=== PATIENT | female | born 1970 | race Caucasian/White ===

== ENCOUNTER 2016-07-13 23:34 | Emergency (ER) | payer OTHER ==
[~2016-07-13] VITALS: Ht 160 cm; Wt 133.9 kg
[~2016-07-13 23:34] MED LIST: ADVAIR 250-501 EACH IH; ADVAIR 250/501 DISK IH; ADVAIR 500/501 DISK IH; ADVAIR HFA120 INHAL1 IH; ALPRAZOLAM1 MG PO; AMOX TR-K CLV1 EAC4 PO; ASPIRIN E.C.81 M1 PO; AUGMENTIN875 MG PO; AZITHROMYCIN500 M1 PO; Aspirin E.C.; CARDIZEM CD,CA300 MG; CARDIZEM120 MG PO; CEFUROXIME500 MG PO; COMBIVENT INH14.7 GM IH; COMBIVENT RESPIM4 GM IH; COUMADIN,JANTO2.5 MG PO; COUMADIN5 MG PO; COUMADIN7.5 MG PO; Ceftin PO; Combivent IH; DELTASONE10 MG PO; DILTIAZEM 24HR240 MG PO; DOXYCYCLINE HY100 M3 PO; DOXYCYCLINE HY100 MG PO; DUONEB 2.5-0.5 M3 ML AEROSOL; DUONEB 2.5-0.5 M3 ML IH; DUONEB3 ML IH; Diflucan PO; FLECAINIDE ACET50 MG PO; FLONASE16 G1 BOTH NARES; KENALOG,ARISTOC15 G1 TP; KLOR-CON 88 MEQ PO; LEVAQUIN500 MG PO; LOPRESSOR25 MG PO; Lopressor PO; MECLIZINE HCL25 M3 PO; MEDROL DOSEPAK4 MG PO; METHIMAZOLE10 MG PO; MICRO-K8 ME2 PO; MOTRIN IB200 MG PO; MULTAQ400 MG PO; POTASSIUM CHLOR8 ME2 PO; PRADAXA75 MG PO; PREDNISOLONE SO10 MG PO; PREDNISONE10 M1 PO; PREDNISONE10 MG PO; PREDNISONE20 MG PO; PROAIR HFA8.5 GM IH; PROTONIX40 MG PO; PROVENTIL,2.5 MG/3 M IH; SINGULAIR10 MG PO; SPIRIVA RESPIMAT4 GM IH; SPIRIVA1 INHALATI IH; Singulair PO; TAMBOCOR50 MG PO; TAMIFLU75 MG PO; Tapazole PO; VENTOLIN HFA18 GM IH; VERAPAMIL ER; VERAPAMIL HCL120 MG PO; VERAPAMIL HCL240 MG PO; VERAPAMIL SR240 MG PO; VIBRAMYCIN100 MG PO; XANAX0.5 MG PO; XANAX1 MG PO; XARELTO20 MG PO; Xanax PO; ZITHROMAX Z-PA250 MG PO; ZITHROMAX250 MG PO; Zithromax PO; predniSONE PO
[2016-07-14] MEDS ORDERED: MEDROL DOSEPAK4 MG PO (01:06)
[2016-07-14 01:27] VITALS: BP 129/86
== END 2016-07-14 01:28 | disposition home or self-care (01) ==
LOC: EME 23:34
DX: J45.901 Unspecified asthma with (acute) exacerbation (principal); E66.01 Morbid (severe) obesity due to excess calories; Z68.43 Body mass index [BMI] 50.0-59.9, adult; Z87.891 Personal history of nicotine dependence
CPT/HCPCS: 94640; 94640 76; 99281; 99283; J7512

== ENCOUNTER 2016-08-18 13:49 | Emergency (ER) | payer OTHER ==
[~2016-08-18] VITALS: Ht 160 cm; Wt 127.2 kg
[2016-08-18 14:40] LABS: BASOPHIL COUNT 0.1 K/uL (0-0.1); EOSINOPHIL (%) 14.1 % (0-5); EOSINOPHIL COUNT 1.2 K/uL (0-0.3); IMMATURE GRANULOCYTE (%) 0.2 % (0.0-0.7); LYMPHOCYTE COUNT 1.8 K/uL (1.0-2.8); MCH 27.6 PG (29.0-34.0); MCHC 31.2 G/DL (30.0-36.0); MCV 88.4 FL (83-99); MEAN PLAT.VOLUME 11.1 uM^3 (9.5-12.4); MONOCYTE (%) 13.7 % (3-12); MONOCYTE COUNT 1.1 K/uL (0-0.8); NEUTROPHIL (%) 48.8 % (45-76); PLATELET COUNT 307 K/uL (156-360); RBC DIS.WIDTH-CV 15.4 % (11.8-14.6); RBC DIS.WIDTH-SD 49.4 % (39-53); RED BLOOD COUNT 4.64 M/uL (3.80-5.20); WHITE BLOOD COUNT 8.3 K/uL (4.1-10.2)
[2016-08-18 14:47] LABS: CHLORIDE 106 mEq/L (99-109); SODIUM 140 mEq/L (136-147)
[2016-08-18 14:49] LABS: GLUCOSE 121 mg/dL (70-99)
[2016-08-18 14:51] LABS: ANION GAP 10 MEQ/L (2-14)
[2016-08-18 14:52] LABS: D-DIMER ELISA 0.25 mg/L FEU (< 0.57)
[2016-08-18 14:53] LABS: GFR ESTIMATE (CALCULATED) > 59 mL/min/
[2016-08-18 14:54] LABS: UREA NITROGEN (BUN) 8 mg/dL (9-23)
[2016-08-18] MEDS ORDERED: PREDNISONE20 MG PO (16:00)
[2016-08-18] MEDS ORDERED: LEVAQUIN750 MG PO (16:00)
[2016-08-18] MEDS ORDERED: PROVENTIL,2.5 MG/3 M IH (16:03)
[2016-08-18 16:16] VITALS: BP 94/83
== END 2016-08-18 16:27 | disposition home or self-care (01) ==
LOC: EME 13:49
PROVIDERS: Physician Assistant
DX: J20.9 Acute bronchitis, unspecified (principal); J45.909 Unspecified asthma, uncomplicated; Z87.891 Personal history of nicotine dependence
CPT/HCPCS: 71020; 80048; 85025; 85379; 93005; 94640; 94640 76; 99281; 99285; J2930; J7040

== ENCOUNTER 2016-10-10 19:30 | Emergency (ER) | payer OTHER ==
[~2016-10-10] VITALS: Ht 162.6 cm; Wt 135.2 kg
[~2016-10-10 19:30] MED LIST changes: +LEVAQUIN750 MG PO
[2016-10-11] MEDS ORDERED: PREDNISONE50 MG PO (00:03)
[2016-10-11] MEDS ORDERED: PROVENTIL,2.5 MG/3 M IH (00:03)
[2016-10-11 00:14] VITALS: BP 164/87
== END 2016-10-11 00:33 | disposition home or self-care (01) ==
LOC: EME 19:30
DX: J44.1 Chronic obstructive pulmonary disease with (acute) exacerbation (principal); J45.901 Unspecified asthma with (acute) exacerbation; Z87.891 Personal history of nicotine dependence; I48.91 Unspecified atrial fibrillation; Z79.01 Long term (current) use of anticoagulants; E66.01 Morbid (severe) obesity due to excess calories; Z68.43 Body mass index [BMI] 50.0-59.9, adult
CPT/HCPCS: 71020; 93005; 94640; 94644; 99281; 99284; J1100; J3475

== ENCOUNTER 2017-02-14 22:56 | Emergency (ER) | payer OTHER ==
[~2017-02-14] VITALS: Ht 160 cm; Wt 137.0 kg
[~2017-02-14 22:56] MED LIST changes: +PREDNISONE50 MG PO
[2017-02-14 23:30] LABS: HEMATOCRIT 41.9 % (36.0-46.0); MCH 27.2 PG (29.0-34.0); MCHC 31.3 G/DL (30.0-36.0); MCV 87.1 FL (83-99); MEAN PLAT.VOLUME 11.3 uM^3 (9.5-12.4); PLATELET COUNT 358 K/uL (156-360); RBC DIS.WIDTH-CV 15.4 % (11.8-14.6); RBC DIS.WIDTH-SD 49.2 % (39-53); RED BLOOD COUNT 4.81 M/uL (3.80-5.20); WHITE BLOOD COUNT 19.5 K/uL (4.1-10.2)
[2017-02-14 23:37] LABS: CHLORIDE 108 mEq/L (99-109); POTASSIUM 3.5 mEq/L (3.7-5.4); SODIUM 141 mEq/L (136-147)
[2017-02-14 23:38] LABS: GLUCOSE 121 mg/dL (70-99)
[2017-02-14 23:40] LABS: ANION GAP 11 MEQ/L (2-14)
[2017-02-14 23:42] LABS: GFR ESTIMATE (CALCULATED) > 59 mL/min/
[2017-02-14 23:43] LABS: UREA NITROGEN (BUN) 14 mg/dL (9-23)
[2017-02-15] MEDS ORDERED: MEDROL DOSEPAK4 MG PO (01:06)
[2017-02-15] MEDS ORDERED: ZITHROMAX Z-PA250 MG PO (01:06)
[2017-02-15 01:41] VITALS: BP 114/90
== END 2017-02-15 01:42 | disposition home or self-care (01) ==
LOC: EME 22:56
DX: J20.9 Acute bronchitis, unspecified (principal); J45.909 Unspecified asthma, uncomplicated; Z87.891 Personal history of nicotine dependence; F41.9 Anxiety disorder, unspecified; Z91.040 Latex allergy status
CPT/HCPCS: 71020; 80048; 85027; 93005; 94640; 94640 76; 99281; 99283; J7512

== ENCOUNTER 2017-03-31 13:48 | Observation (INO) | payer OTHER ==
[~2017-03-31] VITALS: Ht 160 cm; Wt 139.3 kg
[2017-03-31 14:36] LABS: HEMATOCRIT 40.8 % (36.0-46.0); MCH 28.1 PG (29.0-34.0); MCHC 31.9 G/DL (30.0-36.0); MCV 88.1 FL (83-99); MEAN PLAT.VOLUME 10.6 uM^3 (9.5-12.4); PLATELET COUNT 333 K/uL (156-360); RBC DIS.WIDTH-CV 15.2 % (11.8-14.6); RBC DIS.WIDTH-SD 49.4 % (39-53); RED BLOOD COUNT 4.63 M/uL (3.80-5.20); WHITE BLOOD COUNT 13.8 K/uL (4.1-10.2)
[2017-03-31 14:40] LABS: CARBON DIOXIDE (BICARBONATE) 31.3 MEQ/L (20-31)
[2017-03-31 14:46] LABS: CHLORIDE 104 mEq/L (99-109); SODIUM 139 mEq/L (136-147)
[2017-03-31 14:48] LABS: GLUCOSE 257 mg/dL (70-99)
[2017-03-31 14:49] LABS: ANION GAP 8 MEQ/L (2-14)
[2017-03-31 14:51] LABS: GFR ESTIMATE (CALCULATED) > 59 mL/min/
[2017-03-31 14:52] LABS: UREA NITROGEN (BUN) 11 mg/dL (9-23)
[2017-03-31 14:57] LABS: TROP-I INTERPRETATION NEGATIVE; TROPONIN-I < 0.01 ng/mL (0.0-0.30)
[2017-03-31 17:47] VITALS: BP 122/75
[2017-03-31 18:55] VITALS: BP 130/82
[2017-03-31 23:37] VITALS: BP 125/58
[2017-04-01 03:29] VITALS: BP 117/56
[2017-04-01 05:10] LABS: HEMATOCRIT 41.2 % (36.0-46.0); MCH 26.8 PG (29.0-34.0); MCHC 30.6 G/DL (30.0-36.0); MCV 87.7 FL (83-99); MEAN PLAT.VOLUME 10.7 uM^3 (9.5-12.4); PLATELET COUNT 355 K/uL (156-360); RBC DIS.WIDTH-CV 14.8 % (11.8-14.6); RBC DIS.WIDTH-SD 47.7 % (39-53); WHITE BLOOD COUNT 16.2 K/uL (4.1-10.2)
[2017-04-01 05:45] LABS: ANION GAP 8 MEQ/L (2-14); CHLORIDE 102 MEQ/L (99-109); GFR ESTIMATE (CALCULATED) > 59 mL/min/; GLUCOSE 171 mg/dL (70-99); POTASSIUM 4.2 MEQ/L (3.7-5.4); SAMPLE HEMOLYSIS CHECK 0; SAMPLE ICTERIC CHECK 0; SAMPLE LIPEMIA CHECK 0; SODIUM 138 MEQ/L (136-147); UREA NITROGEN (BUN) 11 mg/dL (9-23)
[2017-04-01] MEDS ORDERED: AZITHROMYCIN500 M1 PO (09:15)
[2017-04-01] MEDS ORDERED: DELTASONE20 M1 PO (09:17)
[2017-04-01 09:20] VITALS: BP 120/63
[2017-04-01] MEDS ORDERED: BENZONATATE200 MG PO (11:06)
== END 2017-04-01 12:13 | disposition home or self-care (01) ==
LOC: EME 13:48 → EDOF 16:47 → 5WEST 16:47 → ENRESERV 16:50 → 5WEST 17:37
PROVIDERS: Emergency Medicine; Hospitalist
DX: J45.901 Unspecified asthma with (acute) exacerbation (principal); J96.01 Acute respiratory failure with hypoxia; J20.9 Acute bronchitis, unspecified; I48.0 Paroxysmal atrial fibrillation; R94.31 Abnormal electrocardiogram [ECG] [EKG]; I10 Essential (primary) hypertension; E66.01 Morbid (severe) obesity due to excess calories; Z68.42 Body mass index [BMI] 45.0-49.9, adult; Z79.01 Long term (current) use of anticoagulants; Z91.018 Allergy to other foods; Z91.040 Latex allergy status; Z88.1 Allergy status to other antibiotic agents; Z87.891 Personal history of nicotine dependence
CPT/HCPCS: 71020; 80048; 82803; 83605; 83880; 84484; 85027; 87040; 93005; 94640; 94640 76; 99202; 99281; 99285; G0378; J1100; J2930

== ENCOUNTER 2017-05-12 22:59 | Observation (INO) | payer OTHER ==
[~2017-05-12] VITALS: Ht 160 cm; Wt 140.6 kg
[~2017-05-12 22:59] MED LIST changes: +BENZONATATE200 MG PO; +DELTASONE20 M1 PO
[2017-05-12 23:33] LABS: APPEARANCE SL.HAZY ((CLEAR)); BILIRUBIN NEGATIVE; BLOOD NEGATIVE; COLOR YELLOW ((YELLOW)); GLUCOSE (STRIP) 50; KETONES NEGATIVE; LEUKOCYTES NEGATIVE; NITRITE NEGATIVE; PROTEIN (STRIP) NEGATIVE; SPECIFIC GRAVITY 1.026 (1.000-1.030); UROBILINOGEN 0.2 MG/DL (0.2-1.0)
[2017-05-12 23:58] LABS: RED BLOOD CELLS 0-5 /HPF (0-5); WHITE BLOOD CELLS 0-5 /HPF (0-5)
[2017-05-12 23:59] LABS: BACTERIA RARE /HPF; EPITHELIAL CELLS RARE /HPF; MUCUS NONE SEEN /LPF; UCUL ADDED? NO
[2017-05-13 00:01] LABS: HEMATOCRIT 37.2 % (36.0-46.0); HEMOGLOBIN 11.8 G/DL (11.9-15.5); MCH 27.7 PG (29.0-34.0); MCHC 31.7 G/DL (30.0-36.0); MCV 87.3 FL (83-99); PLATELET COUNT 337 K/uL (156-360); RBC DIS.WIDTH-CV 16.1 % (11.8-14.6); RBC DIS.WIDTH-SD 51.7 % (39-53); RED BLOOD COUNT 4.26 M/uL (3.80-5.20); WHITE BLOOD COUNT 17.3 K/uL (4.1-10.2)
[2017-05-13 00:37] LABS: QUANTITATIVE HCG < 4.0 MIU/ML
[2017-05-13 00:41] LABS: ALBUMIN 3.4 g/dL (3.2-4.8); CHLORIDE 105 mEq/L (99-109); POTASSIUM 3.7 mEq/L (3.7-5.4)
[2017-05-13 00:42] LABS: SODIUM 141 mEq/L (136-147)
[2017-05-13 00:44] LABS: GLUCOSE 137 mg/dL (70-99); TOTAL PROTEIN 6.5 g/dL (6.4-8.3)
[2017-05-13 00:46] LABS: TOTAL BILIRUBIN 0.3 mg/dL (0.0-1.0)
[2017-05-13 00:47] LABS: ALKALINE PHOSPHATASE 79 IU/L (3-129); CREATININE 0.9 mg/dL (0.6-1.3); GFR ESTIMATE (CALCULATED) > 59 mL/min/
[2017-05-13 00:49] LABS: AST (GOT) 12 IU/L (2-34); UREA NITROGEN (BUN) 15 mg/dL (9-23)
[2017-05-13 00:50] LABS: ALT (GPT) 14 IU/L (3-49)
[2017-05-13 04:15] VITALS: BP 129/68
[2017-05-13 09:08] LABS: HEMATOCRIT 37.8 % (36.0-46.0); HEMOGLOBIN 11.6 G/DL (11.9-15.5); MCH 27.6 PG (29.0-34.0); MCHC 30.7 G/DL (30.0-36.0); PLATELET COUNT 321 K/uL (156-360); RBC DIS.WIDTH-CV 16.2 % (11.8-14.6); WHITE BLOOD COUNT 13.7 K/uL (4.1-10.2)
[2017-05-13 11:45] VITALS: BP 126/62
[2017-05-13 15:34] VITALS: BP 113/57
[2017-05-13 20:14] VITALS: BP 115/60
[2017-05-13 23:10] VITALS: BP 121/61
[2017-05-14 04:24] VITALS: BP 131/76
[2017-05-14 05:44] LABS: HEMATOCRIT 36.1 % (36.0-46.0); MCH 27.2 PG (29.0-34.0); MCHC 30.5 G/DL (30.0-36.0); MCV 89.4 FL (83-99); PLATELET COUNT 325 K/uL (156-360); RBC DIS.WIDTH-CV 15.9 % (11.8-14.6); RBC DIS.WIDTH-SD 52.5 % (39-53); RED BLOOD COUNT 4.04 M/uL (3.80-5.20)
[2017-05-14 06:19] LABS: CHLORIDE 99 MEQ/L (99-109); CREATININE 0.8 MG/DL (0.6-1.3); GFR ESTIMATE (CALCULATED) > 59 mL/min/; GLUCOSE 150 mg/dL (70-99); POTASSIUM 3.7 MEQ/L (3.7-5.4); SODIUM 139 MEQ/L (136-147); UREA NITROGEN (BUN) 16 mg/dL (9-23)
[2017-05-14 07:08] VITALS: BP 112/53
[2017-05-14] MEDS ORDERED: AUGMENTIN875 MG PO (10:30)
[2017-05-14] MEDS ORDERED: AZITHROMYCIN500 M1 PO (10:31)
[2017-05-14] MEDS ORDERED: PREDNISONE10 MG PO (10:32)
== END 2017-05-14 13:10 | disposition home or self-care (01) ==
LOC: EME 22:59 → EDOF 05-13 02:50 → 5WEST 05-13 02:50 → ENRESERV 05-13 02:51 → 5WEST 05-13 04:13
PROVIDERS: Hospitalist
DX: J45.51 Severe persistent asthma with (acute) exacerbation (principal); J18.9 Pneumonia, unspecified organism; I48.0 Paroxysmal atrial fibrillation; I48.2 Chronic atrial fibrillation; I48.1 Persistent atrial fibrillation; D72.829 Elevated white blood cell count, unspecified; R09.02 Hypoxemia; R10.31 Right lower quadrant pain; E66.01 Morbid (severe) obesity due to excess calories; Z68.43 Body mass index [BMI] 50.0-59.9, adult; Z79.01 Long term (current) use of anticoagulants; F41.9 Anxiety disorder, unspecified; Z88.1 Allergy status to other antibiotic agents; Z91.018 Allergy to other foods; Z91.040 Latex allergy status
CPT/HCPCS: 71020; 74177; 80048; 80053; 81003; 84702; 85027; 87040; 94640; 94640 76; 94799; 99202; 99281; 99285; G0378; J0456; J0696; J2270; J2405; J7030; J7512

== ENCOUNTER 2017-06-15 17:47 | Emergency (ER) | payer OTHER ==
[~2017-06-15] VITALS: Ht 160 cm; Wt 138.5 kg
[2017-06-15 18:37] LABS: HEMOGLOBIN 12.8 G/DL (11.9-15.5); MCH 27.9 PG (29.0-34.0); MCV 87.3 FL (83-99); PLATELET COUNT 342 K/uL (156-360); RBC DIS.WIDTH-CV 15.9 % (11.8-14.6); RBC DIS.WIDTH-SD 50.7 % (39-53); RED BLOOD COUNT 4.58 M/uL (3.80-5.20); WHITE BLOOD COUNT 13.8 K/uL (4.1-10.2)
[2017-06-15 18:47] LABS: CHLORIDE 106 mEq/L (99-109); POTASSIUM 4.4 mEq/L (3.7-5.4)
[2017-06-15 18:48] LABS: SODIUM 139 mEq/L (136-147)
[2017-06-15 18:49] LABS: GLUCOSE 228 mg/dL (70-99)
[2017-06-15 18:53] LABS: CREATININE 0.9 mg/dL (0.6-1.3); GFR ESTIMATE (CALCULATED) > 59 mL/min/
[2017-06-15 18:54] LABS: UREA NITROGEN (BUN) 11 mg/dL (9-23)
[2017-06-15 18:59] LABS: TROP-I INTERPRETATION NEGATIVE; TROPONIN-I 0.03 ng/mL (0.0-0.30)
[2017-06-15 21:58] LABS: APPEARANCE CLOUDY ((CLEAR)); BILIRUBIN NEGATIVE; BLOOD NEGATIVE; COLOR YELLOW ((YELLOW)); GLUCOSE (STRIP) 150; KETONES NEGATIVE; LEUKOCYTES NEGATIVE; NITRITE NEGATIVE; PROTEIN (STRIP) NEGATIVE; SPECIFIC GRAVITY 1.016 (1.000-1.030); UROBILINOGEN 0.2 MG/DL (0.2-1.0)
[2017-06-15 22:25] LABS: AMORPHOUS PHOSPHATE CRYSTALS 2+; BACTERIA RARE /HPF; EPITHELIAL CELLS RARE /HPF; MUCUS NONE SEEN /LPF; RED BLOOD CELLS NONE SEEN /HPF (0-5); UCUL ADDED? NO; WHITE BLOOD CELLS NONE SEEN /HPF (0-5)
[2017-06-15 22:32] VITALS: BP 114/60
== END 2017-06-15 22:46 | disposition home or self-care (01) ==
LOC: EME 17:47
PROVIDERS: Physician Assistant
DX: R00.2 Palpitations (principal); I48.91 Unspecified atrial fibrillation; F41.9 Anxiety disorder, unspecified; Z91.040 Latex allergy status; Z87.891 Personal history of nicotine dependence
CPT/HCPCS: 71046; 80048; 81003; 84484; 85027; 93005; 99281; 99285; J7030

== ENCOUNTER 2017-08-11 11:15 | Emergency (ER) | payer OTHER ==
[~2017-08-11] VITALS: Ht 160 cm; Wt 139.2 kg
[2017-08-11 11:39] LABS: HEMATOCRIT 39.8 % (36.0-46.0); HEMOGLOBIN 12.5 G/DL (11.9-15.5); MCH 26.8 PG (29.0-34.0); MCHC 31.4 G/DL (30.0-36.0); MCV 85.4 FL (83-99); PLATELET COUNT 326 K/uL (156-360); RBC DIS.WIDTH-CV 16.1 % (11.8-14.6); RBC DIS.WIDTH-SD 49.8 % (39-53); RED BLOOD COUNT 4.66 M/uL (3.80-5.20); WHITE BLOOD COUNT 9.8 K/uL (4.1-10.2)
[2017-08-11 11:48] LABS: CHLORIDE 107 mEq/L (99-109); POTASSIUM 3.9 mEq/L (3.7-5.4); SODIUM 142 mEq/L (136-147)
[2017-08-11 11:50] LABS: GLUCOSE 146 mg/dL (70-99)
[2017-08-11 11:54] LABS: CREATININE 0.7 mg/dL (0.6-1.3); GFR ESTIMATE (CALCULATED) > 59 mL/min/
[2017-08-11 11:55] LABS: UREA NITROGEN (BUN) 7 mg/dL (9-23)
[2017-08-11 12:22] LABS: QUANTITATIVE HCG < 4.0 MIU/ML
[2017-08-11] MEDS ORDERED: VENTOLIN HFA18 GM IH (14:42)
[2017-08-11] MEDS ORDERED: PREDNISONE20 MG PO (14:42)
[2017-08-11 14:58] VITALS: BP 111/67
== END 2017-08-11 15:34 | disposition home or self-care (01) ==
LOC: EME 11:15
DX: J45.901 Unspecified asthma with (acute) exacerbation (principal); R60.0 Localized edema; E66.01 Morbid (severe) obesity due to excess calories; Z68.43 Body mass index [BMI] 50.0-59.9, adult; Z79.01 Long term (current) use of anticoagulants; Z87.891 Personal history of nicotine dependence
CPT/HCPCS: 71046; 80048; 84702; 85027; 94640; 99281; 99285; J2930; J3475

== ENCOUNTER 2017-10-11 15:59 | Inpatient (IN) | payer OTHER ==
[~2017-10-11] VITALS: Ht 160 cm; Wt 141.9 kg
[2017-10-11 17:09] LABS: HEMATOCRIT 36.9 % (36.0-46.0); HEMOGLOBIN 11.7 G/DL (11.9-15.5); MCHC 31.7 G/DL (30.0-36.0); PLATELET COUNT 307 K/uL (156-360); RBC DIS.WIDTH-CV 16.9 % (11.8-14.6); RBC DIS.WIDTH-SD 52.4 % (39-53); RED BLOOD COUNT 4.34 M/uL (3.80-5.20); WHITE BLOOD COUNT 11.7 K/uL (4.1-10.2)
[2017-10-11 17:19] LABS: CHLORIDE 108 mEq/L (99-109); POTASSIUM 3.8 mEq/L (3.7-5.4); SODIUM 141 mEq/L (136-147)
[2017-10-11 17:20] LABS: GLUCOSE 127 mg/dL (70-99)
[2017-10-11 17:24] LABS: CREATININE 0.7 mg/dL (0.6-1.3); GFR ESTIMATE (CALCULATED) > 59 mL/min/
[2017-10-11 17:25] LABS: UREA NITROGEN (BUN) 10 mg/dL (9-23)
[2017-10-11 18:05] LABS: D-DIMER ELISA < 150.00 ng/mLDDU (<230)
[2017-10-11] MEDS ORDERED: FLUCONAZOLE150 MG PO (19:14)
[2017-10-11] MEDS ORDERED: AZITHROMYCIN500 MG PO (19:14)
[2017-10-11] MEDS ORDERED: DELTASONE20 M1 PO (19:14)
[2017-10-11 22:43] VITALS: BP 106/58
[2017-10-12 07:24] VITALS: BP 114/56
[2017-10-12 12:24] VITALS: BP 143/78
[2017-10-12 20:00] VITALS: BP 123/58
[2017-10-12 23:50] VITALS: BP 115/55
[2017-10-13 04:05] VITALS: BP 125/55
[2017-10-13 04:31] LABS: BASOPHIL (%) 0.1 % (0-1); EOSINOPHIL (%) 0 % (0-5); HEMATOCRIT 36.8 % (36.0-46.0); HEMOGLOBIN 11.4 G/DL (11.9-15.5); IMMATURE GRANULOCYTE (%) 1.1 % (0.0-0.7); LYMPHOCYTE (%) 4.2 % (15-42); LYMPHOCYTE COUNT 0.6 K/uL (1.0-2.8); MCH 26.3 PG (29.0-34.0); MONOCYTE (%) 4.4 % (3-12); MONOCYTE COUNT 0.6 K/uL (0-0.8); NEUTROPHIL (%) 90.2 % (45-76); NEUTROPHIL COUNT 12.8 K/uL (1.8-6.4); PLATELET COUNT 300 K/uL (156-360); RBC DIS.WIDTH-CV 16.8 % (11.8-14.6); RBC DIS.WIDTH-SD 52.1 % (39-53); RED BLOOD COUNT 4.33 M/uL (3.80-5.20); WHITE BLOOD COUNT 14.2 K/uL (4.1-10.2)
[2017-10-13 09:00] VITALS: BP 128/72
[2017-10-13 11:46] VITALS: BP 116/57
[2017-10-13 16:58] VITALS: BP 130/72
[2017-10-13 20:09] VITALS: BP 125/67
[2017-10-14 00:29] VITALS: BP 127/72
[2017-10-14 07:10] VITALS: BP 131/58
[2017-10-14 11:49] VITALS: BP 106/66
[2017-10-14 15:41] VITALS: BP 147/63
[2017-10-14 18:56] VITALS: BP 136/80
[2017-10-15 00:09] VITALS: BP 133/65
[2017-10-15 08:30] VITALS: BP 130/62
[2017-10-15 11:25] VITALS: BP 130/71
[2017-10-15] MEDS ORDERED: DOXYCYCLINE HY100 M3 PO (12:52)
[2017-10-15] MEDS ORDERED: PREDNISONE10 MG PO (12:53)
== END 2017-10-15 13:53 | disposition home or self-care (01) | DRG 202 ==
LOC: EME 15:59 → EDOF 20:12 → ENRESERV 20:13 → 4SOUTH 21:53 → CANRESERV 10-13 10:49 → ENRESERV 10-13 10:49 → 4SOUTH 10-15 13:53
PROVIDERS: Internal Medicine Pulmonary Disease
DX: J45.51 Severe persistent asthma with (acute) exacerbation (principal); E66.01 Morbid (severe) obesity due to excess calories; I48.0 Paroxysmal atrial fibrillation; R09.02 Hypoxemia; F41.9 Anxiety disorder, unspecified; E78.5 Hyperlipidemia, unspecified; I25.10 Atherosclerotic heart disease of native coronary artery without angina pectoris; Z87.891 Personal history of nicotine dependence; Z88.8 Allergy status to other drugs, medicaments and biological substances; Z91.018 Allergy to other foods; Z68.43 Body mass index [BMI] 50.0-59.9, adult; Z79.899 Other long term (current) drug therapy; Z79.01 Long term (current) use of anticoagulants; Z91.040 Latex allergy status
CPT/HCPCS: 71046; 71260; 80048; 82785 90; 85025; 85027; 85379; 93005; 94640; 94640 76; 94644; 94667; 94668; 94760; 94799; 99202; 99281; 99285; G0378; J2930; J3475

== ENCOUNTER 2017-12-16 08:43 | Emergency (ER) | payer OTHER ==
[~2017-12-16] VITALS: Ht 160 cm; Wt 136.6 kg
[~2017-12-16 08:43] MED LIST changes: +AZITHROMYCIN500 MG PO; +FLUCONAZOLE150 MG PO
[2017-12-16 09:28] LABS: INTER. NORMALIZED RATIO 1.3
[2017-12-16 09:31] LABS: PTT 34.7 SEC (25-37)
[2017-12-16 09:32] LABS: BASOPHIL (%) 0.8 % (0-1); BASOPHIL COUNT 0.1 K/uL (0-0.1); EOSINOPHIL (%) 6.5 % (0-5); EOSINOPHIL COUNT 0.6 K/uL (0-0.3); HEMATOCRIT 34.6 % (36.0-46.0); IMMATURE GRANULOCYTE (%) 0.5 % (0.0-0.7); LYMPHOCYTE (%) 20.6 % (15-42); LYMPHOCYTE COUNT 1.8 K/uL (1.0-2.8); MCH 26.2 PG (29.0-34.0); MCHC 31.2 G/DL (30.0-36.0); MCV 83.8 FL (83-99); MONOCYTE (%) 14.3 % (3-12); MONOCYTE COUNT 1.2 K/uL (0-0.8); NEUTROPHIL (%) 57.3 % (45-76); PLATELET COUNT 311 K/uL (156-360); RBC DIS.WIDTH-CV 17.3 % (11.8-14.6); RBC DIS.WIDTH-SD 53.1 % (39-53); RED BLOOD COUNT 4.13 M/uL (3.80-5.20); WHITE BLOOD COUNT 8.7 K/uL (4.1-10.2)
[2017-12-16 09:33] LABS: HEMOGLOBIN 10.8 G/DL (11.9-15.5)
[2017-12-16 09:34] LABS: CHLORIDE 105 mEq/L (99-109); POTASSIUM 3.5 mEq/L (3.7-5.4); SODIUM 140 mEq/L (136-147)
[2017-12-16 09:35] LABS: GLUCOSE 113 mg/dL (70-99)
[2017-12-16 09:39] LABS: CREATININE 0.8 mg/dL (0.6-1.3); GFR ESTIMATE (CALCULATED) > 59 mL/min/
[2017-12-16 09:40] LABS: UREA NITROGEN (BUN) 7 mg/dL (9-23)
[2017-12-16 09:47] LABS: TROP-I INTERPRETATION NEGATIVE; TROPONIN-I < 0.01 ng/mL (0.0-0.30)
[2017-12-16 10:41] VITALS: BP 126/98
== END 2017-12-16 10:43 | disposition home or self-care (01) ==
LOC: EME 08:43
PROVIDERS: Emergency Medicine
DX: R00.2 Palpitations (principal); I48.91 Unspecified atrial fibrillation; Z79.01 Long term (current) use of anticoagulants; J45.909 Unspecified asthma, uncomplicated; F41.9 Anxiety disorder, unspecified; Z87.891 Personal history of nicotine dependence; Z91.040 Latex allergy status
CPT/HCPCS: 71045; 80048; 84484; 85025; 85610; 85730; 93005; 94640; 99281; 99284

== ENCOUNTER 2017-12-24 19:07 | Inpatient (IN) | payer OTHER ==
[~2017-12-24] VITALS: Ht 160 cm; Wt 144.5 kg
[2017-12-24 20:11] LABS: BASOPHIL (%) 0.4 % (0-1); BASOPHIL COUNT 0.1 K/uL (0-0.1); EOSINOPHIL (%) 0 % (0-5); HEMATOCRIT 33.3 % (36.0-46.0); HEMOGLOBIN 10.2 G/DL (11.9-15.5); IMMATURE GRANULOCYTE (%) 0.7 % (0.0-0.7); LYMPHOCYTE (%) 10.6 % (15-42); LYMPHOCYTE COUNT 1.3 K/uL (1.0-2.8); MCH 25.8 PG (29.0-34.0); MCHC 30.6 G/DL (30.0-36.0); MCV 84.3 FL (83-99); MONOCYTE (%) 7.6 % (3-12); MONOCYTE COUNT 0.9 K/uL (0-0.8); NEUTROPHIL (%) 80.7 % (45-76); NEUTROPHIL COUNT 9.9 K/uL (1.8-6.4); PLATELET COUNT 353 K/uL (156-360); RBC DIS.WIDTH-CV 16.8 % (11.8-14.6); RBC DIS.WIDTH-SD 51.8 % (39-53); RED BLOOD COUNT 3.95 M/uL (3.80-5.20); WHITE BLOOD COUNT 12.2 K/uL (4.1-10.2)
[2017-12-24 20:25] LABS: CHLORIDE 103 mEq/L (99-109); POTASSIUM 4.2 mEq/L (3.7-5.4); SODIUM 138 mEq/L (136-147)
[2017-12-24 20:27] LABS: GLUCOSE 174 mg/dL (70-99)
[2017-12-24 20:30] LABS: CREATININE 0.8 mg/dL (0.6-1.3); GFR ESTIMATE (CALCULATED) > 59 mL/min/
[2017-12-24 20:31] LABS: UREA NITROGEN (BUN) 9 mg/dL (9-23)
[2017-12-24] MEDS ORDERED: AUGMENTIN875 MG PO (21:52)
[2017-12-24] MEDS ORDERED: DELTASONE20 M1 PO (21:52)
[2017-12-24] MEDS ORDERED: ERGOCALCIF50000 UNIT PO (21:54)
[2017-12-24 23:45] VITALS: BP 131/66
[2017-12-25 04:29] VITALS: BP 128/68
[2017-12-25 07:48] VITALS: BP 140/81
[2017-12-25 11:26] VITALS: BP 120/68
[2017-12-25 16:05] VITALS: BP 115/69
[2017-12-25 19:56] VITALS: BP 101/51
[2017-12-26 00:19] VITALS: BP 115/68
[2017-12-26 04:06] VITALS: BP 110/58
[2017-12-26] MEDS ORDERED: PREDNISONE10 MG PO (07:51)
[2017-12-26] MEDS ORDERED: AUGMENTIN500 MG PO (07:52)
[2017-12-26 08:27] VITALS: BP 119/67
== END 2017-12-26 09:40 | disposition home or self-care (01) | DRG 202 ==
LOC: EME 19:07 → EDOF 22:29 → 2EAST 22:29
PROVIDERS: Physician Assistant
DX: J45.51 Severe persistent asthma with (acute) exacerbation (principal); Z68.43 Body mass index [BMI] 50.0-59.9, adult; F33.9 Major depressive disorder, recurrent, unspecified; J20.9 Acute bronchitis, unspecified; R09.02 Hypoxemia; G47.33 Obstructive sleep apnea (adult) (pediatric); J30.2 Other seasonal allergic rhinitis; E66.01 Morbid (severe) obesity due to excess calories; I10 Essential (primary) hypertension; I48.0 Paroxysmal atrial fibrillation; I48.2 Chronic atrial fibrillation; F41.9 Anxiety disorder, unspecified; Z79.01 Long term (current) use of anticoagulants; Z82.49 Family history of ischemic heart disease and other diseases of the circulatory system; Z87.01 Personal history of pneumonia (recurrent); Z87.891 Personal history of nicotine dependence; Z79.51 Long term (current) use of inhaled steroids; Z88.2 Allergy status to sulfonamides; Z91.040 Latex allergy status; Z91.018 Allergy to other foods
CPT/HCPCS: 80048; 85025; 94640; 94644; 94799; 99281; 99284; J0696; J2930; J7512